=== PATIENT | male | born 1995 | race African-American/Black ===

== ENCOUNTER 2024-08-24 17:50 | Emergency (ER) | payer MEDICAID, SELFPAY ==
[2024-08-24 18:01] VITALS: BP 122/66; PULSE 49; RESP 16; TEMP 36.9; O2SAT 99; BMI 33.5
--- NOTE | 2024-08-24 18:03 | ED.GENADULT ---
HPI - General Adult General Chief complaint: Urogenital-Male Stated complaint: Painful urination Related Data Allergies Allergy/AdvReac Type Severity Reaction Status Date / Time No Known Allergies Allergy Verified 08/25/24 10:30 [facility] Social History Social History Advance Directives: No Advance Directives Information Provided: Yes Do you have a plan to hurt others: No Plan Physical Exam ED Vital Signs: BMI result Body Mass Index 33.5 Course Course Course Narrative: This is a rapid medical exam performed by Tye Guillen NP: Additional HPI, ROS, PE not included below will be deferred to primary provider. Patient is a 28-year-old male presenting to the ED with complaint of painful urination dark white penile discharge x 2 days. Reports he has recently had unprotected intercourse. Plan: CT NG, RPR, UA Reevaluation(s) Reevaluation #1: Patient left waiting room without completing treatment. Returned on 08/25 and was treated for gonorrhea. Time: 10:08 Medical Decision Making Lab Data Labs: Lab Results 08/24/24 08/24/24 Range/Units 18:12 18:45 Urine Color Dark Yellow Urine Appearance Clear Urine pH 6.5 (5.0-9.0) Ur Specific [place] >= 1.030 H (1.005-1.025) Urine Protein Trace (Neg-Trace) mg/dL Urine Glucose (UA) Negative (Negative) mg/dL Urine Ketones Trace (Negative) mg/dL Urine Blood Negative (Negative) Urine Nitrite Negative (Negative) Ur Leukocyte Esterase Trace H (Negative) Urine RBC 0-2 (0-2) /HPF Urine WBC 6-10 H (0-5) /HPF Ur Squamous Epith Cells 0-2 (0-2) /HPF Urine Bacteria None Seen (None Seen) Hyaline Casts 0-2 (0-2) /LPF T.pallidum Ab (EIA) Nonreactive (Nonreactive) Chlam trachomat DNA PCR NOT DETECTED (Not Detect.) HIV 1&2 Ab/P24 Ag 4thGn Nonreactive (Nonreactive) N.gonorrhoeae DNA (PCR) DETECTED A (Not Detect.) Discharge Plan Discharge Clinical Impression: Gonorrhea Patient Disposition: Left W/O Completing Treatment Discharge Date/Time: 08/24/24 21:31
[2024-08-24 18:20] LABS: Appearance Urine Clear; Color Urine Dark Yellow; Glucose Urine UA Negative (Negative); Leukocyte Esterase Urine Trace (Negative); Nitrite Urine Negative (Negative); PH 6.5 (5.0-9.0); Specific Gravity - Urine >= 1.030 (1.005-1.025); UMIC TRIGGER UACC YES; Urine Blood Negative (Negative); Urine Ketones Trace mg/dL (Negative); Urine Protein Trace mg/dL (Neg-Trace)
[2024-08-24 18:22] LABS: Bacteria Urine None Seen (None Seen); Hyaline Casts Urine 0-2 /LPF (0-2); RBC Urine 0-2 /HPF (0-2); Squamous Epithelial Cell Urine 0-2 /HPF (0-2); UACC Culture Trigger YES
--- NOTE | 2024-08-24 21:30 | PC.NURSE ---
this patient approached nurses station stated he is on probation and on a n ankle monitor with a curfew- pt did not wish to stay for further eval- left dept fully ambulatory, no apparent distress
[2024-08-25 01:37] LABS: CT PCR NOT DETECTED (Not Detect.); NG PCR DETECTED (Not Detect.)
[2024-08-25 07:56] LABS: Syphilis Screen Nonreactive (Nonreactive)
[2024-08-25 08:01] LABS: HIV AB/AG Nonreactive (Nonreactive); HIV Num 1 0.37 S/CO (0.00-0.99)
== END 2024-08-24 21:31 | disposition left against medical advice (07) ==
PROVIDERS: Registered Nurse Emergency; Emergency Provider Emergency Medicine
DX: A54.9 Gonococcal infection, unspecified (principal); R30.0 Dysuria; Z79.899 Other long term (current) drug therapy
CPT/HCPCS: 36415; 81001; 86780; 87086; 87389; 87491; 87591; 99283

== ENCOUNTER 2024-08-25 10:05 | Emergency (ER) | payer MEDICAID, SELFPAY ==
[2024-08-25 10:28] VITALS: BP 107/49; PULSE 58; RESP 14; TEMP 36.4; O2SAT 99; BMI 33.4
--- NOTE | 2024-08-25 12:58 | ED_ITS ---
HPI - General Adult General Chief complaint: General Medical Stated complaint: std Time Seen by Provider: 08/25/24 12:58 Source: patient, RN notes reviewed and old records reviewed Mode of arrival: ambulatory History of Present Illness ED Provider: Jyotsna Becker PA-C HPI narrative: 28-year-old male no significant past medical history presenting to ED for gonorrhea treatment, patient was evaluated in our ED yesterday, tested for STIs s/p complaint of dysuria/penile discharge. States he is sexually active with 1 partner without protection. Was not treated yesterday during ED visit. Denies new or worsening complaints at present, abdominal pain, penile lesions, hematuria, retention Related Data Allergies Allergy/AdvReac Type Severity Reaction Status Date / Time No Known Allergies Allergy Verified 08/25/24 10:30 Review of Systems Review of Systems: Yes all other systems are reviewed and are negative Constitutional: Constitutional: Reports as per [facility] Past Medical History Attestation statement: The following information was validated with the patient. Source: old records reviewed Physical Exam ED Vital Signs: Vital Signs - 24 hr 08/25/24 10:28 Temperature 97.6 F Pulse Rate 58 Respiratory Rate 14 Blood Pressure 107/49 L Pulse Oximetry 99 Oxygen Delivery Method Room Air BMI result Body Mass Index 33.4 Const General: cooperative, healthy appearing and no acute distress Orientation/consciousness: patient oriented x3 Limitations: no limitations HENMT Head: Yes normal to inspection and Yes atraumatic Ears: hearing grossly normal bilaterally General nose exam: Normal external nose present Face and sinus: Yes normal facial exam Eyes General: appearance normal, both eyes and all related structures EOM: EOMs intact bilaterally Neck Neck: Yes normal visual inspection and Yes no meningeal signs Resp Effort & Inspection: normal respiratory effort and no respiratory distress Cardio Rate: regular rate Skin Rashes: no rashes Wounds: no wounds Neuro General: patient oriented x3, tone normal and no meningeal signs Cranial nerves: Yes CN's II-XII intact bilaterally Gait exam (Neuro): Normal gait present Extrem General: Yes normal to inspection Medical Decision Making Medical Decision Making [facility] Narrative: 28-year-old male no significant past medical history presenting to ED for g onorrhea treatment, patient was evaluated in our ED yesterday, tested for STIs s/p complaint of dysuria/penile discharge. On exam vital signs stable, NAD, nontoxic appearing, patient tested positive for gonorrhea yesterday in our ED, was not treated at that time. Tested negative for syphilis, HIV, and chlamydia. UA with trace leuk esterase and wbc's likely from gonorrhea > preliminary urine culture without growth. Will await urine culture prior to treating for UTI Plan: rohith Ramírezry/PCP follow-up Please refer to course for remaining clinical decision making, interpretation of labs/imaging results, and discussions with consultants and/or family members. Results discussed with patient including worrisome signs and symptoms and strict return precautions, and when to return to the emergency department. They verbalized understanding and feel safe for discharge at this time. Differential Diagnosis Differential Diagnoses: The differential diagnosis associated with the presentation includes As above Lab Data MDM Lab Attestation statement: I reviewed the patient's lab results. External Record Review External record reviewed: Inpatient record, Office record, Outpatient record, Prior outpatient labs, Prior outpatient radiology, Primary care record and Outside ED record Tests considered The following testing was considered but not selected: As above Prescription Management I considered prescription management with: Antibiotic Chronic Conditions Patient?s care impacted by: Other Social Determinants Patient?s care significantly limited by Social Determinants of Health including: Other Social Determinant of Health Discharge Plan Discharge Clinical Impression: Gonorrhea Patient Disposition: Home, Self-Care Instructions: Sexually Transmitted Diseases (ED), Gonorrhea (ED) Additional Instructions: You have gonorrhea, you are treated appropriately in the emergency department Please inform her partners that they can be tested and treated as well Refrain from any sexual contact for at least the next week, you can always be retested at [facility] If her symptoms persist or worsen, change, you develop lesions, difficulty or inability to urinate return to the ED immediately Referrals: [facility] [Provider Group] Physician,None [Primary Care Provider] - Print Language: Nepali
[2024-08-25] MEDS: cefTRIAXone sodium 500 MG, Lidocaine HCl 1 % MPF 1 ML IM (13:58)
[2024-08-25 13:59] VITALS: BP 107/49; PULSE 58; RESP 14; TEMP 36.4; O2SAT 99
== END 2024-08-25 13:59 | disposition home or self-care (01) ==
PROVIDERS: Emergency Provider Emergency Medicine
DX: A54.9 Gonococcal infection, unspecified (principal)
CPT/HCPCS: 96372; 99282; 99284; J0696; J2003

== ENCOUNTER 2024-10-30 17:21 | Emergency (ER) | payer OTHER, SELFPAY ==
[2024-10-30] VITALS (10 sets, daily range): BP systolic 91–140; BP diastolic 71–97; PULSE 58–97; RESP 12–20; TEMP 36.4–36.9; O2SAT 95–100; BMI 31.0
--- NOTE | ~2024-10-30 | XR_ITS ---
CLINICAL HISTORY: LEFT ARM DISLOCATION 2 view left elbow Comparison: CR - XR ELBOW LT 2V - 10/30/24 17:33 EDT Findings: Bones intact. No dislocations. No significant loss of joint space, osteophytes, or erosions. There is an elbow effusion. No radiopaque foreign body. Minimal triceps tendon enthesopathy. IMPRESSION: 1. Satisfactory reduction of the ulnohumeral and proximal radial dislocations. 2. No visible fracture. This document has been electronically signed by: Sudha Torres DO on 10/30/2024 19:32:19
--- NOTE | ~2024-10-30 | XR_ITS ---
CLINICAL HISTORY: fall, pain 2 view left elbow 2 view left forearm Comparison: None Findings: 4 films total. There is dorsal dislocation of the proximal ulna relative to the humerus. There is dorsal dislocation of the proximal radius. Intact distal radioulnar articulation. No acute fracture. No radiopaque foreign body. IMPRESSION: 1. Dorsal ulnohumeral dislocation. 2. Dorsal dislocation of the proximal radius. 3. No fracture identified. This document has been electronically signed by: Sudha Torres DO on 10/30/2024 18:25:47
--- NOTE | 2024-10-30 17:26 | ED.UPPEXIN ---
HPI - Extremity Injury (Upper) General Chief Complaint: Extremity Injury, Upper Stated Complaint: L arm fx/dislocation Time Seen by Provider: 10/30/24 17:31 Source: patient and EMS Mode of arrival: EMS Limitations: no limitations History of Present Illness ED Provider: Marjorie Krishna NP HPI narrative: patient is a 29-year-old male who presents emergency department for evaluation of left arm particularly the elbow radiating down the forearm pain since injury just prior to arrival. He was playing basketball, fell onto outstretched hand. Denies pain to the shoulder, minimal pain to the wrist. Able to move the fingers Of left hand with full range of motion. Denies numbness tingling or cold sensation. Denies prior injury to this extremity. Denies any head strike or loss of conscious this with the fall, no use of anticoagulants or known coagulation disorders. Related Data Allergies Allergy/AdvReac Type Severity Reaction Status Date / Time No Known Allergies Allergy Verified 10/30/24 17:53 Review of Systems Review of Systems: Yes all other systems are reviewed and are negative [facility] Past Medical History Attestation statement: The following information was validated with the patient. Source: old records reviewed Social History Social History Advance Directives: No Advance Directives Information Provided: Yes Physical Exam Vital Signs: Vital Signs: Last Vital Signs Temp 98.0 F 10/30/24 19:30 Pulse 58 10/30/24 19:30 Resp 20 10/30/24 19:30 BP 133/86 10/30/24 19:30 Pulse Ox 100 10/30/24 19:30 O2 Del Method Room Air 10/30/24 19:30 Oxygen Flow Rate 6 10/30/24 18:40 BMI result Body Mass Index 31.0 Appearance: Alert.?Oriented to person, place and time. No acute distress.?Normal affect. Eyes: Pupils equal, round and reactive to light.?e.?? CVS: Heart sounds normal. Normal heart rate and rhythm.? Pulses normal.?? Respiratory: No respiratory distress.? Lung sounds clear to auscultation bilaterally??? Skin: Skin warm and dry.? Normal skin color.? ? Extremities: Localized edema to the left elbow, deformity along the ulnar aspect posteriorly. decreased AROM to the wrist secondary to pain, full range of motion to the digits. 2+ radial pulse. Neuro: Moves all extremities spontaneously. Sensation intact bilaterally. Ambulates with normal steady gait. Course Course Course Narrative: Attending note: The patient is a 29-year-old male with a left elbow dislocation. Ultimately the decision was to proceed with procedural sedation to allow for reduction of the joint. I obtained consent from the patient for both the sedation in the reduction procedure. The usual procedural sedation protocols were followed. The patient was given 100 mg of IV propofol under my direct supervision. The patient became sleepy but was not unconscious. we then proceeded with the reduction procedure. Keeping the elbow bent I applied pressure to the bent forearm to provide traction to the upper arm. Nurse practitioner applied posterior pressure to the upper arm. This resulted in a palpable shift in the alignment of the joint and taoism of the correct anatomic appearance of the elbow. a postreduction x-ray was obtained which showed good reduction of the dislocation. The patient was placed in a sling and will follow up with Orthopedics. Dr. Matson Reevaluation(s) Reevaluation #1: after receiving morphine IV, was still not able to tolerate manipulation to the elbow. Therefore decision was made for procedural sedation, performed with my attending Dr. Matson, sent was obtained from patient, procedure went well without complication as per procedural portion of this note, postreduction films with adequate placement, placed into a sling. Medications Administered Discontinued Medications Generic Name Dose Route Start Last Admin Trade Name Freq PRN Reason Stop Dose Admin Morphine Sulfate 4 mg 10/30/24 17:38 10/30/24 17:49 Morphine Sulfate 4 Mg/Ml Cartridge IVPUSH 10/30/24 17:39 4 mg ONCE ONE Administration Protocol Ondansetron HCl 4 mg 10/30/24 17:38 10/30/24 17:49 Ondansetron Hcl 4 Mg/2 Ml Vial IVPUSH 10/30/24 17:39 4 mg ONCE ONE Administration Propofol 100 mg 10/30/24 18:15 10/30/24 18:58 Propofol 200 Mg/20 Ml Vial IVPUSH 10/30/24 18:16 100 mg ONCE ONE Administration Medical Decision Making Medical Decision Making MDM Narrative: Patient is a 29-year-old male who presents emergency department via EMS for evaluation of left arm injury as per HPI, pain localized to the elbow withdeformity along the ulnar aspect posteriorly and localized swelling, neurovascularly intact distally. Obtaining XR imaging for evaluation of fracture or dislocation versus contusion / hematoma/sprain. Patient received morphine IM for pain, Zofran for Narcotic induced nausea. Differential Diagnosis Differential Diagnoses: The differential diagnosis associated with the presentation includes ( see narrative above) Independent Interpretation I performed an independent interpretation of an: Plain X-Ray ( left posterior elbow dislocation without apparent fracture) Radiology Impression Discussion of test interpretation with radiology: I have reviewed the radiologist's reading. Radiologist Impression: 2 view left elbow 2 view left forearm Comparison: None Findings: 4 films total. There is dorsal dislocation of the proximal ulna relative to the humerus. There is dorsal dislocation of the proximal radius. Intact distal radioulnar articulation. No acute fracture. No radiopaque foreign body. IMPRESSION: 1. Dorsal ulnohumeral dislocation. 2. Dorsal dislocation of the proximal radius. 3. No fracture identified. Independent Historian Clinical information obtained from an independent historian. History obtained from or confirmed by: EMS Prescription Management I considered prescription management with: Pain Medication Procedures Orthopedic Joint Reduction Joint #1: Time Out Performed: Yes Side: left Joint Reduction Location: elbow Analgesia: procedural sedation Technique used: traction/counter-traction Post-reduction neuro exam: intact Post-reduction vascular: intact Post Reduction X-Ray Obtained: Yes Post Reduction X-Ray Results: reduced Splint Applied: Yes (sling) Patient Tolerated Procedure: well Procedural Sedation Indication: fracture/dislocation reduction ASA Class: I Mallampati Class: I Time of Last PO Intake: 13:00 Preparation: monitor technician applied, pulse oximeter, capnometry used, supplemental O2 applied, suction/airway equipment at bedside and IV secured IV Propofol dose (mg): 100 Patient Tolerated Procedure: well and no complications Complications: none Additional Comments: successful reduction of left elbow dislocation Discharge Plan Discharge Clinical Impression: Dislocation of elbow Patient Disposition: Home, Self-Care Instructions: Elbow Dislocation (ED) Additional Instructions: You were evaluated in the emergency department after a left elbow injury with a dislocation. You were given medications to make you drowsy for procedural sedation so that the elbow could be put back into place. Elbow was able to be reduced/ cut back without complication. Use the sling as provided. You can take ibuprofen 200 mg, 3 tablets (600mg) every 6-8 hours as needed for pain, in addition to Tylenol 500 mg, 2 tablets (1,000mg) every 4-6 hours as needed for pain, but not to exceed 3 doses daily (3,000mg).? Apply ice the area for 10-15 minutes 4-6 times daily. Follow up with Orthopedics, contact their office tomorrow to schedule appointment. [place] [facility] [place] [facility] [place] Group] Interventions: ED Discharge Assessment Last Done: 10/30/24 19:30 Discharge Date/Time: 10/30/24 19:35 Print Language: [place]
[2024-10-30] MEDS: ondansetron HCL 4 MG/2 ML VIAL IVPUSH (17:49)
[2024-10-30] MEDS: Morphine Sulfate 4 MG/ML CARTRIDGE IVPUSH (17:49)
[2024-10-30] MEDS: propofoL 200 MG/20 ML VIAL 100 MG IVPUSH (18:58)
--- NOTE | 2024-10-30 19:26 | PC.NURSE ---
This process description writer assumed care of this Pt at 1900. Pt A&Ox3, verbalizes understanding of procedure. sling applied to left shoulder.
== END 2024-10-30 19:35 | disposition home or self-care (01) ==
PROVIDERS: Emergency Provider Emergency Medicine
DX: S53.105A Unspecified dislocation of left ulnohumeral joint, initial encounter (principal); W18.30XA Fall on same level, unspecified, initial encounter; Y93.67 Activity, basketball; Y92.9 Unspecified place or not applicable; Y99.9 Unspecified external cause status; M79.632 Pain in left forearm
CPT/HCPCS: 73070; 73080; 73090; 96374; 96375; 99283; 99284; J2270; J2405; J2704

== ENCOUNTER → 2024-10-30 17:25 | Outpatient (BNV) | payer OTHER, SELFPAY | PROVIDERS: Emergency Provider Emergency Medicine; Visit Provider Radiology Diagnostic Radiology | DX: M25.522 Pain in left elbow (principal) | CPT/HCPCS: 73070; 73080; 73090 ==

== ENCOUNTER 2024-11-10 13:57 | Outpatient (REF) | payer OTHER, SELFPAY | END 2024-11-10 13:58 | disposition home or self-care (01) | LOC: HO.HOSX 13:57 | PROVIDERS: Visit Provider Physician Assistant | DX: Z13.89 Encounter for screening for other disorder (principal) ==

== ENCOUNTER 2024-12-07 14:50 | Outpatient (AMB) | payer OTHER, SELFPAY ==
--- NOTE | 2024-12-07 14:54 | MHC.OFFVIS ---
Vital Signs 12/07/24 14:57 Height 5 ft 11 in Weight 230 lb BMI 32.1 Intake Visit Reasons: ER follow up LT elbow dislocation, DOI 10/30/24 Intake Note: Dale 29 yr old male presents today for an ER follow up of left elbow dislocation, DOI 10/30/24. Patient presented to [facility] ER the same day after he fell on his left elbow while playing basketball. His elbow was reduced and placed in a sling. Patient reports that he is unable to fully straighten his arm. He describes his pain as a soreness. He had numbness and tingling the beginning however this had subsided. He feels he may need to be referred to physical therapy. Allergies No Known Allergies Allergy (Verified 12/07/24 15:05) Medication List - Last Reconciled 12/07/24 by Bari White PA-C No Known Home Meds HPI HPI ER follow up LT elbow dislocation, DOI 10/30/24: Details: 29-year-old gentleman presents to the office today for an injury he sustained to his left elbow on 10/30/2024 while playing basketball. States he fell and dislocated the elbow. He was seen in the emergency department where the elbow was reduced and he was referred to our office for ortho eval. He states since the incident he is unable to fully straighten the elbow and feels as though the elbow is not quite the same. [facility] Social History (Updated 12/07/24 @ 14:58 by Donna Erickson Nehemias) Patient Tobacco Use Status: Never used Tobacco Use of substances other than those prescribed or required for medical reasons: Yes Substance Use Type: Marijuana Current occupational status: employed Current occupation: [employer], right hand dominant Review of Systems Const All systems reviewed & are unremarkable except as noted in HPI and below Physical Exam Vital Signs: BMI result Body Mass Index 32.1 Const General: cooperative and no acute distress Orientation/consciousness: patient oriented x3 Resp Effort & Inspection: normal respiratory effort and able to speak in complete sentences Cardio Peripheral pulses: Peripheral pulses 2+ throughout Neuro General: patient oriented x3 Extrem Other: Left elbow is normal to inspection he does have diffuse soft tissue swelling without tenderness to palpation. Can flex the elbow without discomfort but he is lacking about 5 degrees of extension. Supination and pronation without pain or locking. Neurovascularly intact. Results Reviewed Results Reviewed: X-rays of the left elbow obtained on 10/30/2024 show successful reduction without evidence of acute fracture. Assessment & Plan Assessment & Plan (1) Dislocation of left elbow: Code(s): S53.105A - Unspecified dislocation of left ulnohumeral joint, initial encounter Category: Medical Plan: At this time an MRI of the left elbow has been ordered to further evaluate the surrounding ligamentous structures and to rule out bony abnormality. I did place an order for occupational therapy to work on some stretching and progressive strengthening exercises. At this time he will avoid any type of lifting pushing pulling carrying or contact sports. Follow up once the MRI is complete. Orders: Orders MR elbow LT wo con Today S53.105A - Unspecified dislocation of left ulnohumeral joint, initial encounter OT Evaluation and Treatment Today S53.105A - Unspecified dislocation of left ulnohumeral joint, initial encounter Coding Level of Care Code New Pt Level 3 (44592) Complex EM visit Add On G2211 Diagnoses Dislocation of left elbow S53.105A
[2024-12-07 14:57] VITALS: BMI 32.1
== END 2024-12-07 15:25 | disposition home or self-care (01) ==
LOC: HO.HOS 14:51
PROVIDERS: Visit Provider Physician Assistant
DX: S53.105A Unspecified dislocation of left ulnohumeral joint, initial encounter (principal)
CPT/HCPCS: 99203; G2211

== ENCOUNTER → 2024-12-07 14:50 | Outpatient (BNVA) | payer OTHER, SELFPAY | PROVIDERS: Visit Provider Physician Assistant | DX: S53.105D Unspecified dislocation of left ulnohumeral joint, subsequent encounter (principal); X58.XXXD Exposure to other specified factors, subsequent encounter | CPT/HCPCS: 99202 ==